=== PATIENT | female | born 1950 | race Caucasian/White ===

== ENCOUNTER → 2017-12-04 09:12 | Outpatient (CLI) | payer MEDICARE, OTHER ==
[2015-02-24 07:07] VITALS: BMI 33.0
== END | disposition home or self-care (01) ==
LOC: D.CT 09:12
DX: R63.4 Abnormal weight loss (principal)

== ENCOUNTER → 2017-12-14 07:47 | Outpatient (CLI) | payer MEDICARE, OTHER ==
[2015-02-24 07:07] VITALS: BMI 33.0
[2017-12-14 09:56] LABS: ALBUMIN 3.7 g/dL (3.4-5.0); BILIRUBIN - DIRECT 0.17 mg/dL (0.00-0.30); BILIRUBIN - INDIRECT 0.39 mg/dL (0.00-1.00); BILIRUBIN - TOTAL 0.56 mg/dL (0.2-1.3); PROTEIN - SERUM 7.4 g/dL (6.4-8.2)
== END | disposition home or self-care (01) ==
LOC: D.MRI 07:47
PROVIDERS: Internal Medicine Gastroenterology
DX: R93.8 Abnormal findings on diagnostic imaging of other specified body structures (principal)

== ENCOUNTER → 2018-07-02 08:18 | Outpatient (CLI) | payer MEDICARE, OTHER ==
[2015-02-24 07:07] VITALS: BMI 33.0
[2018-07-02 10:35] LABS: ALBUMIN 3.6 g/dL (3.4-5.0); BILIRUBIN - DIRECT 0.11 mg/dL (0.00-0.30); BILIRUBIN - INDIRECT 0.53 mg/dL (0.00-1.00); BILIRUBIN - TOTAL 0.64 mg/dL (0.2-1.3); PROTEIN - SERUM 7.4 g/dL (6.4-8.2)
== END | disposition home or self-care (01) ==
LOC: D.MRI 08:00
PROVIDERS: Internal Medicine Gastroenterology
DX: R93.89 Abnormal findings on diagnostic imaging of other specified body structures (principal); K86.89 Other specified diseases of pancreas; K83.8 Other specified diseases of biliary tract

== ENCOUNTER → 2019-02-04 08:57 | Outpatient (CLI) | payer MEDICARE, OTHER ==
[2015-02-24 07:07] VITALS: BMI 33.0
== END | disposition home or self-care (01) ==
LOC: D.MRI 08:57
PROVIDERS: ATTEND Internal Medicine Gastroenterology
DX: K83.8 Other specified diseases of biliary tract (principal)